=== PATIENT | female | born 1940 | race Caucasian/White ===

== ENCOUNTER → 2020-01-22 | Outpatient (CLI) | payer MEDICARE, BC | END | disposition home or self-care (01) | LOC: LAB 15:22 | PROVIDERS: ATTEND Nurse Practitioner Family | DX: N39.0 Urinary tract infection, site not specified (principal) | CPT/HCPCS: 87086 ==

== ENCOUNTER → 2020-02-26 | Outpatient (CLI) | payer MEDICARE, BC | END | disposition home or self-care (01) | LOC: LAB 16:29 | PROVIDERS: ATTEND Nurse Practitioner Family | DX: N39.0 Urinary tract infection, site not specified (principal) | CPT/HCPCS: 87086 ==

== ENCOUNTER 2020-04-18 10:01 | Inpatient (IN) | payer MEDICARE, BC ==
[~2020-04-18] VITALS: Ht 154.9 cm; Wt 74.9 kg
[2020-04-18] MEDS ORDERED: ASPirin 81 mg TAB PO ONE (10:30)
[2020-04-18] MEDS ORDERED: SODIUM CHLORIDE 0.9% 1,000 ML IV ONE ×2 (10:30→11:30)
[2020-04-18 10:43] LABS: Basophils # (auto) 0.1 10 ^3/uL (0-0.2); Basophils % (auto) 1.1 % (0.0-2.0); Eosinophils # (auto) 0.4 10 ^3/uL (0-0.8); Eosinophils % (auto) 3.9 % (0.0-7.0); Hematocrit 43.9 % (36.0-46.0); Hemoglobin 14.4 g/dL (12.2-16.2); Lymphocytes # (auto) 1.2 10 ^3/uL (0.4-5.4); Lymphocytes % (auto) 13.6 % (10.0-50.0); Mean Corpuscular Hemoglobin 28.8 pg (28.0-32.0); Mean Corpuscular Hgb Conc. 32.8 g/dL (32.0-36.0); Mean Corpuscular Volume 87.9 fL (80.0-100.0); Monocytes # (auto) 0.6 10 ^3/uL (0-1.3); Monocytes % (auto) 7.1 % (0.0-12.0); Neutrophils # (auto) 6.6 10 ^3/uL (1.6-8.6); Neutrophils % (auto) 74.3 % (37.0-80.0); Platelet Count (auto) 345 10^3/uL (140-450); Red Blood Cells 4.99 10^6/uL (4.0-5.20); Red Cell Distribution Width 13.6 % (11.8-14.3); White Blood Cell 8.9 10^3/uL (4.4-10.8)
[2020-04-18 10:54] LABS: Albumin 3.6 g/dL (3.4-5.0); Anion Gap 5 (5-15); Blood Urea Nitrogen 17 mg/dL (7-18); Calcium 8.2 mg/dL (8.5-10.1); Carbon Dioxide 27 mmol/L (21-32); Chloride 107 mmol/L (98-107); Glucose 121 mg/dL (74-106); Potassium 3.6 mmol/L (3.5-5.1); Sodium 139 mmol/L (136-145)
[2020-04-18 11:00] LABS: Alanine Aminotransferase 32 U/L (13-56); Alkaline Phosphatase 57 U/L (45-117); Aspartate Aminotransferase 29 U/L (15-37); BUN/Creatinine Ratio 16.5; Bilirubin, Total 0.4 mg/dL (0.2-1.0); GFR African American 66 mL/min; GFR Non-African American 55 mL/min; Total Protein 7.2 g/dL (6.4-8.2)
[2020-04-18] MEDS ORDERED: SODIUM CHLORIDE 0.9% 500 ML IVB ONE (11:30)
[2020-04-18] MEDS ORDERED: metroNIDAZOLE 500MG/100ML 100 ML IV ONE (11:30)
[2020-04-18 12:17] LABS: Urine Bacteria NONE SEEN /hpf (None Seen); Urine Blood Negative /uL (Negative); Urine Budding Yeast OCCASIONAL /hpf (None Seen); Urine Mucus FEW (None Seen); Urine Specific Gravity 1.015 (1.001-1.035); Urine WBC 4 /hpf (0 - 5)
[2020-04-18] MEDS ORDERED: NITROGLYCERIN 0.4 MG SL TAB SL PRN (13:30)
[2020-04-18] MEDS ORDERED: MORPHINE SULF INJ 2 MG/ML SYRINGE 1ML IV PRN ×2 (13:30→14:15)
[2020-04-18] MEDS ORDERED: ONDANSETRON HCL 4 MG/2 ML VIAL IV PRN (14:15)
[2020-04-18] MEDS ORDERED: LACTULOSE 20Gm/30ML SOLN PO PRN (14:15)
[2020-04-18] MEDS: SODIUM CHLORIDE 0.9% 1,000 ML IV SCH (14:15)
[2020-04-18] MEDS ORDERED: traMADol HCL 50 MG TAB PO PRN (14:15)
[2020-04-18] MEDS ORDERED: DEXTROSE (50%) 50ML SYRG IV PRN (14:15)
[2020-04-18] MEDS ORDERED: METOPROLOL TARTRATE 25 MG TAB PO ONE (14:30)
[2020-04-18] MEDS ORDERED: LITH300T5 PO (16:13)
[2020-04-18] MEDS ORDERED: CARV6.2551 PO (16:13)
[2020-04-18] MEDS ORDERED: FLUO-125 PO (16:13)
[2020-04-18] MEDS ORDERED: CHOL20007 PO (16:13)
[2020-04-18] MEDS ORDERED: LEVO100T8 PO (16:13)
[2020-04-18] MEDS ORDERED: LISI-285 PO (16:13)
[2020-04-18] MEDS ORDERED: SIMV-13 PO (16:13)
[2020-04-18] MEDS ORDERED: RABE1TAB PO (16:13)
[2020-04-18 16:53] VITALS: BP 111/66
[2020-04-18 16:55] VITALS: BP 175/69
[2020-04-18] MEDS: LABETALOL HCL 5 MG/ML 4ML SYRINGE IV PRN (17:32)
[2020-04-18 21:50] VITALS: BP 159/71
[2020-04-18] MEDS: METOPROLOL TARTRATE 25 MG TAB PO SCH (22:17)
[2020-04-18] MEDS: FAMOTIDINE 20 MG TAB PO SCH (22:18)
[2020-04-18] MEDS: ACETAMINOPHEN 500 MG TAB PO PRN (22:23)
[2020-04-18] MEDS: LORazepam 0.5 MG TAB PO PRN (22:23)
[2020-04-19] MEDS: SODIUM CHLORIDE 0.9% 1,000 ML IV SCH ×3 (00:29→20:15)
[2020-04-19] MEDS: LABETALOL HCL 5 MG/ML 4ML SYRINGE IV PRN ×2 (04:00→07:08)
[2020-04-19 05:00] VITALS: BP 159/66
[2020-04-19] MEDS: ASPirin 81 mg TAB PO SCH (08:54)
[2020-04-19] MEDS: ENOXAPARIN SOD 40 MG/0.4 ML SYRINGE SC SCH (08:55)
[2020-04-19] MEDS: METOPROLOL TARTRATE 25 MG TAB PO SCH ×2 (08:55→21:30)
[2020-04-19] MEDS: NITROGLYCERIN 0.2MG/HR TOPICAL PATCH TD SCH (08:56)
[2020-04-19 09:00] VITALS: BP 153/75
[2020-04-19] MEDS ORDERED: LITHIUM CARBONATE 300 MG TAB PO ONE (10:45)
[2020-04-19] MEDS ORDERED: FLUoxetine HCL 20 MG CAP PO ONE (10:45)
[2020-04-19 12:52] VITALS: BP 132/68
[2020-04-19] MEDS: ACETAMINOPHEN 500 MG TAB PO PRN ×2 (16:18→22:36)
[2020-04-19] MEDS: amLODIPine BESYLATE 5 MG TAB PO SCH (16:49)
[2020-04-19 16:59] VITALS: BP 137/74
[2020-04-19] MEDS: FAMOTIDINE 20 MG TAB PO SCH (21:21)
[2020-04-19] MEDS: LORazepam 0.5 MG TAB PO PRN (21:21)
[2020-04-19 21:29] VITALS: BP 116/84
[2020-04-20 04:31] VITALS: BP 116/51
[2020-04-20] MEDS: SODIUM CHLORIDE 0.9% 1,000 ML IV SCH ×2 (06:42→16:15)
[2020-04-20] MEDS: LEVOTHYROXINE SODIUM 100 MCG TAB PO SCH (06:43)
[2020-04-20] MEDS: NITROGLYCERIN 0.2MG/HR TOPICAL PATCH TD SCH (08:22)
[2020-04-20] MEDS: METOPROLOL TARTRATE 25 MG TAB PO SCH ×2 (08:22→21:36)
[2020-04-20] MEDS: ENOXAPARIN SOD 40 MG/0.4 ML SYRINGE SC SCH (08:23)
[2020-04-20] MEDS: ASPirin 81 mg TAB PO SCH (08:24)
[2020-04-20] MEDS: LITHIUM CARBONATE 300 MG TAB PO SCH (08:24)
[2020-04-20] MEDS: amLODIPine BESYLATE 5 MG TAB PO SCH (08:25)
[2020-04-20] MEDS: FLUoxetine HCL 20 MG CAP PO SCH (08:25)
[2020-04-20 08:30] VITALS: BP 125/77
[2020-04-20 13:00] VITALS: BP 115/67
[2020-04-20] MEDS ORDERED: GOLYTELY 4L KIT PO ONE (13:15)
[2020-04-20 15:52] LABS: INR 1.07 (0.9-1.15); Partial Thromboplastin Time 26.2 sec (23.0-31.2)
[2020-04-20 16:13] VITALS: BP 125/77
[2020-04-20 21:00] VITALS: BP 132/63
[2020-04-20] MEDS: FAMOTIDINE 20 MG TAB PO SCH (21:36)
[2020-04-20] MEDS: LORazepam 0.5 MG TAB PO PRN (23:01)
[2020-04-21] MEDS: SODIUM CHLORIDE 0.9% 1,000 ML IV SCH ×2 (02:15→14:11)
[2020-04-21 05:00] VITALS: BP 124/67
[2020-04-21] MEDS ORDERED: GOLYTELY 4L KIT PO ONE (06:00)
[2020-04-21] MEDS: LEVOTHYROXINE SODIUM 100 MCG TAB PO SCH (06:39)
[2020-04-21 06:44] LABS: Basophils # (auto) 0.1 10 ^3/uL (0-0.2); Eosinophils # (auto) 0.4 10 ^3/uL (0-0.8); Eosinophils % (auto) 4.7 % (0.0-7.0); Hematocrit 41.5 % (36.0-46.0); Lymphocytes # (auto) 1.9 10 ^3/uL (0.4-5.4); Lymphocytes % (auto) 21.5 % (10.0-50.0); Mean Corpuscular Hemoglobin 29.1 pg (28.0-32.0); Mean Corpuscular Hgb Conc. 33.7 g/dL (32.0-36.0); Mean Corpuscular Volume 86.3 fL (80.0-100.0); Monocytes # (auto) 0.8 10 ^3/uL (0-1.3); Neutrophils # (auto) 5.5 10 ^3/uL (1.6-8.6); Neutrophils % (auto) 63.8 % (37.0-80.0); Platelet Count (auto) 324 10^3/uL (140-450); Red Blood Cells 4.81 10^6/uL (4.0-5.20); Red Cell Distribution Width 13.5 % (11.8-14.3); White Blood Cell 8.7 10^3/uL (4.4-10.8)
[2020-04-21] MEDS ORDERED: SODIUM CHLORIDE LOCK 10 ML ONE (08:32)
[2020-04-21] MEDS ORDERED: diphenhdrAMINE HCL 50 MG/1 ML VL ONE (08:33)
[2020-04-21] MEDS: fentaNYL CITRATE 100 MCG/2 ML VL ONE ×3 (08:45→08:53)
[2020-04-21] MEDS: MIDAZOLAM HCL 5 MG/ML-1ML VIAL ONE ×3 (08:45→08:53)
[2020-04-21 09:00] VITALS: BP 145/68
[2020-04-21] MEDS: NITROGLYCERIN 0.2MG/HR TOPICAL PATCH TD SCH (10:00)
[2020-04-21] MEDS: LITHIUM CARBONATE 300 MG TAB PO SCH (10:00)
[2020-04-21] MEDS: ASPirin 81 mg TAB PO SCH (10:32)
[2020-04-21] MEDS: METOPROLOL TARTRATE 25 MG TAB PO SCH (10:33)
[2020-04-21] MEDS: ENOXAPARIN SOD 40 MG/0.4 ML SYRINGE SC SCH (10:33)
[2020-04-21] MEDS: FLUoxetine HCL 20 MG CAP PO SCH (10:33)
[2020-04-21] MEDS: amLODIPine BESYLATE 5 MG TAB PO SCH (10:33)
[2020-04-21 11:52] VITALS: BP 130/56
[2020-04-21 13:00] VITALS: BP 122/52
== END 2020-04-21 15:18 | disposition home or self-care (01) | DRG 392 ==
LOC: ER 10:01 → TELE 10:02 → TELE-WESTW 15:24
PROVIDERS: ADMIT Internal Medicine; ATTEND Family Medicine
PROC: 0DBG8ZX Excision of Left Large Intestine, Via Natural or Artificial Opening Endoscopic, Diagnostic (ICD-10-PCS; principal; 2020-04-21 08:40)
DX: K57.30 Diverticulosis of large intestine without perforation or abscess without bleeding (principal); R07.89 Other chest pain; E78.5 Hyperlipidemia, unspecified; F41.9 Anxiety disorder, unspecified; I10 Essential (primary) hypertension; Z82.49 Family history of ischemic heart disease and other diseases of the circulatory system; Z90.710 Acquired absence of both cervix and uterus; Z90.49 Acquired absence of other specified parts of digestive tract; F31.9 Bipolar disorder, unspecified; Z20.828 Contact with and (suspected) exposure to other viral communicable diseases
CPT/HCPCS: 36415; 71045; 74176; 80053; 81001; 82550; 82565; 83036; 83690; 83735; 84443; 84484; 85025; 85379; 85610; 85730; 86850; 86900; 86901; 87045; 87493; 93306; 96365; 96375; G0378; J2250; J2405; J3490

== ENCOUNTER → 2020-07-09 | Outpatient (CLI) | payer MEDICARE, BC ==
[~2020-07-09] MED LIST: CARV6.2551 PO; CHOL20007 PO; FLUO-125 PO; LEVO100T8 PO; LISI-285 PO; LITH300T5 PO; RABE1TAB PO; SIMV-13 PO
== END | disposition home or self-care (01) ==
LOC: LAB 13:53
PROVIDERS: ATTEND Urology
DX: N39.0 Urinary tract infection, site not specified (principal)
CPT/HCPCS: 87086

== ENCOUNTER → 2020-07-15 | Outpatient (CLI) | payer MEDICARE, BC | END | disposition home or self-care (01) | LOC: LAB 10:31 | PROVIDERS: ATTEND Urology | DX: N39.0 Urinary tract infection, site not specified (principal) | CPT/HCPCS: 87086 ==

== ENCOUNTER → 2020-08-06 | Outpatient (CLI) | payer MEDICARE, BC ==
[~2020-08-06] MED LIST changes: -RABE1TAB PO; +RABE1TAB4 PO
== END | disposition home or self-care (01) ==
LOC: Rad HDHVI 13:50
PROVIDERS: ATTEND Internal Medicine Cardiovascular Disease
DX: Z01.810 Encounter for preprocedural cardiovascular examination (principal); I10 Essential (primary) hypertension
CPT/HCPCS: 93306

== ENCOUNTER 2020-08-08 10:54 | Emergency (ER) | payer MEDICARE, BC ==
[~2020-08-08] VITALS: Ht 154.9 cm; Wt 69.9 kg
[2020-08-08 11:42] LABS: Basophils # (auto) 0.1 10 ^3/uL (0-0.2); Basophils % (auto) 1.2 % (0.0-2.0); Eosinophils # (auto) 0.3 10 ^3/uL (0-0.8); Hematocrit 41.4 % (36.0-46.0); Hemoglobin 14.2 g/dL (12.2-16.2); Lymphocytes # (auto) 1.3 10 ^3/uL (0.4-5.4); Lymphocytes % (auto) 19.4 % (10.0-50.0); Mean Corpuscular Hemoglobin 29.6 pg (28.0-32.0); Mean Corpuscular Hgb Conc. 34.2 g/dL (32.0-36.0); Mean Corpuscular Volume 86.4 fL (80.0-100.0); Monocytes # (auto) 0.6 10 ^3/uL (0-1.3); Monocytes % (auto) 8.5 % (0.0-12.0); Neutrophils # (auto) 4.5 10 ^3/uL (1.6-8.6); Neutrophils % (auto) 66.9 % (37.0-80.0); Nucleated Red Blood Cells % 0.1 %; Platelet Count (auto) 304 10^3/uL (140-450); Red Blood Cells 4.79 10^6/uL (4.0-5.20); Red Cell Distribution Width 13.8 % (11.8-14.3); White Blood Cell 6.8 10^3/uL (4.4-10.8)
[2020-08-08 12:01] LABS: Albumin 3.4 g/dL (3.4-5.0); Calcium 8.3 mg/dL (8.5-10.1); Potassium 4.1 mmol/L (3.5-5.1)
[2020-08-08 12:05] LABS: BUN/Creatinine Ratio 11.3; Bilirubin, Total 0.4 mg/dL (0.2-1.0); Total Protein 7.1 g/dL (6.4-8.2)
[2020-08-08 14:02] LABS: Urine Bacteria FEW /hpf (None Seen); Urine Blood Negative /uL (Negative); Urine Specific Gravity 1.011 (1.001-1.035); Urine WBC 1 /hpf (0 - 5)
[2020-08-08] MEDS ORDERED: SODIUM CHLORIDE 0.9% 1,000 ML IV ONE (14:15)
[2020-08-08 17:14] VITALS: BP 137/58
== END 2020-08-08 17:30 | disposition home or self-care (01) ==
LOC: ER 10:54
DX: N20.0 Calculus of kidney (principal); K21.9 Gastro-esophageal reflux disease without esophagitis; I10 Essential (primary) hypertension; Z79.899 Other long term (current) drug therapy
CPT/HCPCS: 36415; 74176; 80053; 81001; 85025; 96360

== ENCOUNTER 2020-10-09 11:56 | Emergency (ER) | payer MEDICARE, BC ==
[~2020-10-09] VITALS: Ht 154.9 cm; Wt 69.9 kg
[2020-10-09 13:46] LABS: Basophils # (auto) 0.1 10 ^3/uL (0-0.2); Basophils % (auto) 0.7 % (0.0-2.0); Eosinophils # (auto) 0.2 10 ^3/uL (0-0.8); Eosinophils % (auto) 1.7 % (0.0-7.0); Hematocrit 43.4 % (36.0-46.0); Hemoglobin 14.8 g/dL (12.2-16.2); Lymphocytes # (auto) 1.2 10 ^3/uL (0.4-5.4); Lymphocytes % (auto) 8.8 % (10.0-50.0); Mean Corpuscular Hemoglobin 28.9 pg (28.0-32.0); Mean Corpuscular Hgb Conc. 34.1 g/dL (32.0-36.0); Mean Corpuscular Volume 84.9 fL (80.0-100.0); Monocytes # (auto) 0.7 10 ^3/uL (0-1.3); Monocytes % (auto) 5.2 % (0.0-12.0); Neutrophils # (auto) 11.2 10 ^3/uL (1.6-8.6); Neutrophils % (auto) 83.6 % (37.0-80.0); Platelet Count (auto) 325 10^3/uL (140-450); Red Blood Cells 5.12 10^6/uL (4.0-5.20); Red Cell Distribution Width 13.9 % (11.8-14.3); White Blood Cell 13.4 10^3/uL (4.4-10.8)
[2020-10-09 14:05] LABS: Albumin 3.5 g/dL (3.4-5.0); Anion Gap 8 (5-15); Blood Urea Nitrogen 21 mg/dL (7-18); Calcium 9.1 mg/dL (8.5-10.1); Carbon Dioxide 24 mmol/L (21-32); Chloride 108 mmol/L (98-107); Glucose 121 mg/dL (74-106); Magnesium 2.2 mg/dL (1.6-2.6); Potassium 3.8 mmol/L (3.5-5.1); Sodium 140 mmol/L (136-145)
[2020-10-09 14:10] LABS: Alanine Aminotransferase 30 U/L (13-56); Alkaline Phosphatase 56 U/L (45-117); Aspartate Aminotransferase 28 U/L (15-37); BUN/Creatinine Ratio 23.3; Bilirubin, Total 0.3 mg/dL (0.2-1.0); GFR African American 77 mL/min; GFR Non-African American 64 mL/min; Total Protein 7.3 g/dL (6.4-8.2)
[2020-10-09 15:40] VITALS: BP 136/87
== END 2020-10-09 15:41 | disposition home or self-care (01) ==
LOC: ER 11:56
DX: R00.2 Palpitations (principal); R07.9 Chest pain, unspecified; N39.0 Urinary tract infection, site not specified; D72.829 Elevated white blood cell count, unspecified; E78.5 Hyperlipidemia, unspecified; I10 Essential (primary) hypertension; Z88.6 Allergy status to analgesic agent
CPT/HCPCS: 36415; 71046; 80053; 83735; 84484; 85025; 93005

== ENCOUNTER → 2020-10-15 | Day surgery (SDC) | payer MEDICARE, BC ==
[2020-10-12 10:58] LABS: Basophils # (auto) 0.1 10 ^3/uL (0-0.2); Basophils % (auto) 1.1 % (0.0-2.0); Eosinophils # (auto) 0.3 10 ^3/uL (0-0.8); Eosinophils % (auto) 3.8 % (0.0-7.0); Hematocrit 42.1 % (36.0-46.0); Hemoglobin 14.3 g/dL (12.2-16.2); Lymphocytes # (auto) 1.6 10 ^3/uL (0.4-5.4); Lymphocytes % (auto) 17.4 % (10.0-50.0); Mean Corpuscular Hemoglobin 29.1 pg (28.0-32.0); Mean Corpuscular Hgb Conc. 34.1 g/dL (32.0-36.0); Mean Corpuscular Volume 85.4 fL (80.0-100.0); Monocytes # (auto) 0.6 10 ^3/uL (0-1.3); Monocytes % (auto) 7.2 % (0.0-12.0); Neutrophils # (auto) 6.3 10 ^3/uL (1.6-8.6); Neutrophils % (auto) 70.5 % (37.0-80.0); Nucleated Red Blood Cells % 0.1 %; Platelet Count (auto) 296 10^3/uL (140-450); Red Blood Cells 4.93 10^6/uL (4.0-5.20)
[2020-10-12 11:11] LABS: INR 0.97 (0.9-1.15); Partial Thromboplastin Time 24.2 sec (23.0-31.2)
[2020-10-12 12:19] LABS: Urine Bacteria FEW /hpf (None Seen); Urine Blood Negative /uL (Negative); Urine Budding Yeast OCCASIONAL /hpf (None Seen); Urine Hyaline Cast FEW /lpf (0 - 2); Urine Mucus FEW (None Seen); Urine WBC 2 /hpf (0 - 5)
[2020-10-12 12:51] LABS: Albumin 3.4 g/dL (3.4-5.0); Calcium 8.7 mg/dL (8.5-10.1); Potassium 3.7 mmol/L (3.5-5.1)
[2020-10-12 12:54] LABS: BUN/Creatinine Ratio 21.6; Bilirubin, Total 0.4 mg/dL (0.2-1.0); Total Protein 6.7 g/dL (6.4-8.2)
[~2020-10-15] VITALS: Ht 30.5 cm; Wt 0.5 kg
[~2020-10-15] MED LIST changes: +CIPROFLOXACIN 400MG/200ML 200 ML IV ONE; +CONJ ESTROGENS 0.625MG/GM VAG CRM 30GM PV ONE; +GLYCOPYRROLATE 0.2 MG/ML 1ML VIAL ONE; +HYDROmorphone HCL 2 MG/ML VL IV PRN; +LIDOCAINE W/ EPINEPHRINE 1% 20ML VIAL ONE; +MIDAZOLAM HCL 1MG/1ML-2 ML VIAL ONE; +NEOSTIGMINE 1 MG/ML INJ (10mg/10ML VIAL) ONE; +ONDANSETRON HCL 4 MG/2 ML VIAL IV PRN; +ceFAZolin 1GM VL ONE; +fentaNYL CITRATE 100 MCG/2 ML VL ONE
[2020-10-15 14:11] VITALS: BP 126/61
== END | disposition home or self-care (01) ==
LOC: SUR 08:38
PROVIDERS: ATTEND Urology
DX: N81.6 Rectocele (principal); N39.3 Stress incontinence (female) (male); K21.9 Gastro-esophageal reflux disease without esophagitis; I10 Essential (primary) hypertension; E03.9 Hypothyroidism, unspecified; F31.9 Bipolar disorder, unspecified; F99 Mental disorder, not otherwise specified; Z20.822 Contact with and (suspected) exposure to COVID-19; Z98.890 Other specified postprocedural states; Z79.899 Other long term (current) drug therapy; Z90.710 Acquired absence of both cervix and uterus; Z96.652 Presence of left artificial knee joint; Z88.5 Allergy status to narcotic agent; Z88.8 Allergy status to other drugs, medicaments and biological substances
CPT/HCPCS: 36415; 57220; 57250; 57288; 80053; 81001; 85025; 85610; 85730; 88305; C1771; C5275; J0690; J0744; J2250; J3010; Q4170; U0003

== ENCOUNTER → 2020-12-21 | Outpatient (CLI) | payer MEDICARE, BC ==
[~2020-12-21] MED LIST changes: -CIPROFLOXACIN 400MG/200ML 200 ML IV ONE; -CONJ ESTROGENS 0.625MG/GM VAG CRM 30GM PV ONE; -GLYCOPYRROLATE 0.2 MG/ML 1ML VIAL ONE; -HYDROmorphone HCL 2 MG/ML VL IV PRN; -LIDOCAINE W/ EPINEPHRINE 1% 20ML VIAL ONE; -MIDAZOLAM HCL 1MG/1ML-2 ML VIAL ONE; -NEOSTIGMINE 1 MG/ML INJ (10mg/10ML VIAL) ONE; -ONDANSETRON HCL 4 MG/2 ML VIAL IV PRN; -ceFAZolin 1GM VL ONE; -fentaNYL CITRATE 100 MCG/2 ML VL ONE
== END | disposition home or self-care (01) ==
LOC: LAB 17:31
PROVIDERS: ATTEND Urology
DX: N39.0 Urinary tract infection, site not specified (principal)
CPT/HCPCS: 87086

== ENCOUNTER 2021-09-12 11:56 | Emergency (ER) | payer MEDICARE, BC ==
[~2021-09-12] VITALS: Ht 154.9 cm; Wt 69.4 kg
[2021-09-12] MEDS ORDERED: ASPirin 81 mg TAB PO ONE (12:15)
[2021-09-12 12:54] LABS: Urine Bacteria NONE SEEN /hpf (None Seen); Urine Blood Negative /uL (Negative); Urine Mucus FEW (None Seen); Urine Specific Gravity 1.022 (1.001-1.035); Urine WBC 7 /hpf (0 - 5)
[2021-09-12 13:02] LABS: Albumin 3.6 g/dL (3.4-5.0); BUN/Creatinine Ratio 16.8; Calcium 8.2 mg/dL (8.5-10.1); Potassium 3.5 mmol/L (3.5-5.1)
[2021-09-12 13:05] LABS: INR 1.01 (0.9-1.15); Partial Thromboplastin Time 25.3 sec (23.6-33.0)
[2021-09-12 13:06] LABS: Bilirubin, Total 0.5 mg/dL (0.2-1.0)
[2021-09-12 13:18] LABS: Basophils # (auto) 0.2 10 ^3/uL (0-0.2); Basophils % (auto) 1.6 % (0.0-2.0); Eosinophils # (auto) 0.4 10 ^3/uL (0-0.8); Eosinophils % (auto) 3.4 % (0.0-7.0); Hematocrit 43.9 % (36.0-46.0); Hemoglobin 14.6 g/dL (12.2-16.2); Lymphocytes # (auto) 1.1 10 ^3/uL (0.4-5.4); Lymphocytes % (auto) 9.5 % (10.0-50.0); Mean Corpuscular Hgb Conc. 33.3 g/dL (32.0-36.0); Mean Corpuscular Volume 83.9 fL (80.0-100.0); Monocytes # (auto) 0.7 10 ^3/uL (0-1.3); Monocytes % (auto) 5.9 % (0.0-12.0); Neutrophils # (auto) 9.1 10 ^3/uL (1.6-8.6); Neutrophils % (auto) 79.6 % (37.0-80.0); Red Blood Cells 5.23 10^6/uL (4.0-5.20); Red Cell Distribution Width 13.5 % (11.8-14.3); White Blood Cell 11.5 10^3/uL (4.4-10.8)
[2021-09-12] MEDS ORDERED: NITR-87 PO (13:44)
[2021-09-12] MEDS ORDERED: cefTRIAXone W LIDOCAINE 1 GM IM IM ONE (13:45)
[2021-09-12] MEDS ORDERED: cefTRIAXone SOD 1,000 MG VL ONE (14:12)
[2021-09-12 16:34] VITALS: BP 182/77
[2021-09-12] MEDS ORDERED: cloNIDine HCL 0.1 MG TAB PO ONE (17:45)
== END 2021-09-12 18:20 | disposition home or self-care (01) ==
LOC: ER 11:56
DX: N39.0 Urinary tract infection, site not specified (principal); R00.2 Palpitations; I10 Essential (primary) hypertension; E78.5 Hyperlipidemia, unspecified; E03.9 Hypothyroidism, unspecified; Z90.89 Acquired absence of other organs; Z79.899 Other long term (current) drug therapy; Z88.5 Allergy status to narcotic agent
CPT/HCPCS: 36415; 71045; 80053; 81001; 83880; 84443; 84484; 85025; 85610; 85730; 93005; 96372; 99285; J0696

== ENCOUNTER 2025-06-30 10:10 | Outpatient (CLI) | payer MEDICARE, BC ==
[~2025-06-30 10:10] MED LIST changes: +NITR-87 PO; -RABE1TAB4 PO; +RABE1TAB5 PO; -SIMV-13 PO; +SIMV40TA18 PO
== END 2025-06-30 17:00 | disposition home or self-care (01) ==
LOC: Rad HDHVI 10:10
PROVIDERS: ATTEND Internal Medicine Cardiovascular Disease
DX: I08.1 Rheumatic disorders of both mitral and tricuspid valves (principal); I51.7 Cardiomegaly; Z95.0 Presence of cardiac pacemaker
CPT/HCPCS: 93306